=== PATIENT | female | born 1990 | race Caucasian/White ===

== ENCOUNTER 2017-02-07 13:55 | Emergency (ER) | payer BC ==
[~2017-02-07] VITALS: Ht 157.5 cm; Wt 54.6 kg
[~2017-02-07 13:55] MED LIST: CLARITIN10 MG PO; NEXPLANON68 MG SC; XANAX0.5 MG PO
[2017-02-07 14:38] LABS: HEMATOCRIT 40.2 % (36.0-46.0); MCH 30.9 PG (29.0-34.0); MCHC 34.1 G/DL (30.0-36.0); MCV 90.7 FL (83-99); MEAN PLAT.VOLUME 10.1 uM^3 (9.5-12.4); PLATELET COUNT 203 K/uL (156-360); RBC DIS.WIDTH-CV 11.7 % (11.8-14.6); RBC DIS.WIDTH-SD 39.2 % (39-53); RED BLOOD COUNT 4.43 M/uL (3.80-5.20); WHITE BLOOD COUNT 6.5 K/uL (4.1-10.2)
[2017-02-07 14:46] LABS: CHLORIDE 106 mEq/L (99-109); POTASSIUM 3.9 mEq/L (3.7-5.4); SODIUM 141 mEq/L (136-147)
[2017-02-07 14:48] LABS: GLUCOSE 86 mg/dL (70-99)
[2017-02-07 14:49] LABS: ANION GAP 11 MEQ/L (2-14)
[2017-02-07 14:50] LABS: TOTAL BILIRUBIN 0.4 mg/dL (0.0-1.0)
[2017-02-07 14:51] LABS: ADD MIUA? NO; BILIRUBIN NEGATIVE; BLOOD NEGATIVE; COLOR STRAW ((YELLOW)); GLUCOSE (STRIP) NEGATIVE; KETONES NEGATIVE; LEUKOCYTES NEGATIVE; NITRITE NEGATIVE; PROTEIN (STRIP) NEGATIVE; SPECIFIC GRAVITY 1.004 (1.000-1.030); UCUL ADDED? NO; UROBILINOGEN 0.2 MG/DL (0.2-1.0)
[2017-02-07 14:52] LABS: ALKALINE PHOSPHATASE 56 IU/L (3-129); GFR ESTIMATE (CALCULATED) > 59 mL/min/
[2017-02-07 14:53] LABS: UREA NITROGEN (BUN) 9 mg/dL (9-23)
[2017-02-07 15:01] LABS: QUANTITATIVE HCG < 4.0 MIU/ML
[2017-02-07] MEDS ORDERED: ZOFRAN ODT4 MG PO (16:40)
[2017-02-07] MEDS ORDERED: BENTYL20 MG PO (16:40)
[2017-02-07 17:02] VITALS: BP 125/80
== END 2017-02-07 17:03 | disposition home or self-care (01) ==
LOC: EME 13:55
DX: K80.20 Calculus of gallbladder without cholecystitis without obstruction (principal); F32.9 Major depressive disorder, single episode, unspecified; F41.9 Anxiety disorder, unspecified; Z88.1 Allergy status to other antibiotic agents
CPT/HCPCS: 76705; 80053; 81003; 84702; 85027; 99281; 99285

== ENCOUNTER 2017-02-15 11:26 | Day surgery (SDC) | payer BC ==
[~2017-02-15] VITALS: Ht 159.4 cm; Wt 54.0 kg
[~2017-02-15 11:26] MED LIST changes: +BENTYL20 MG PO; +DEXILANT60 MG PO; +ZOFRAN ODT4 MG PO
[2017-02-15 12:12] VITALS: BP 127/71
[2017-02-15] MEDS ORDERED: HYDROCODON-ACE1 EA11 PO (15:19)
[2017-02-15 16:38] VITALS: BP 112/67
[2017-02-15 17:40] VITALS: BP 99/58
== END 2017-02-15 17:48 | disposition home or self-care (01) ==
LOC: SDC 11:26
PROC: 0FT44ZZ Resection of Gallbladder, Percutaneous Endoscopic Approach (ICD-10-PCS; principal; 2017-02-15)
DX: K80.10 Calculus of gallbladder with chronic cholecystitis without obstruction (principal); K21.9 Gastro-esophageal reflux disease without esophagitis; Z88.0 Allergy status to penicillin; N87.1 Moderate cervical dysplasia
CPT/HCPCS: 88304; J0131; J1170; J1644; J2175; J2250; J2310; J2710; J3010; S0020

== ENCOUNTER 2017-08-22 06:33 | Day surgery (SDC) | payer BC ==
[~2017-08-22] VITALS: Ht 157.5 cm; Wt 54.4 kg
[~2017-08-22 06:33] MED LIST changes: +ATARAX10 MG PO; +HYDROCODON-ACE1 EA11 PO; +JUNEL1 EACH PO; +ZOLOFT50 MG PO
[2017-08-22 06:57] VITALS: BP 131/87
[2017-08-22 10:15] VITALS: BP 138/90
[2017-08-22 10:31] VITALS: BP 130/89
== END 2017-08-22 10:43 | disposition home or self-care (01) ==
LOC: SDC 06:33
PROC: 0JBF0ZZ Excision of Left Upper Arm Subcutaneous Tissue and Fascia, Open Approach (ICD-10-PCS; principal; 2017-08-22)
DX: D17.22 Benign lipomatous neoplasm of skin and subcutaneous tissue of left arm (principal); Z88.0 Allergy status to penicillin
CPT/HCPCS: 88304; J0131; J0690; J1100; J2250; J2405; J3010; S0020

== ENCOUNTER 2017-09-02 11:41 | Emergency (ER) | payer BC ==
[~2017-09-02] VITALS: Ht 157.5 cm; Wt 55.9 kg
[2017-09-02] MEDS ORDERED: PREDNISONE10 MG PO (12:17)
[2017-09-02 12:37] VITALS: BP 141/104
== END 2017-09-02 12:38 | disposition home or self-care (01) ==
LOC: EME 11:41
DX: R21 Rash and other nonspecific skin eruption (principal); L29.9 Pruritus, unspecified; T78.40XA Allergy, unspecified, initial encounter; Z98.890 Other specified postprocedural states; F41.9 Anxiety disorder, unspecified; F32.9 Major depressive disorder, single episode, unspecified; Z90.49 Acquired absence of other specified parts of digestive tract; Z88.0 Allergy status to penicillin
CPT/HCPCS: 99281; 99283